=== PATIENT | female | born 1955 | race Caucasian/White ===

== ENCOUNTER → 2017-02-25 | Outpatient (CLI) | payer BC | LOC: BHSO 08:59 | DX: F33.42 Major depressive disorder, recurrent, in full remission (principal) ==

== ENCOUNTER → 2017-08-26 | Outpatient (CLI) | payer BC | LOC: BHSO 08:58 | DX: F33.42 Major depressive disorder, recurrent, in full remission (principal) ==

== ENCOUNTER → 2018-02-25 | Outpatient (CLI) | payer BC, OTHER | LOC: BHSO 08:06 | DX: F33.42 Major depressive disorder, recurrent, in full remission (principal) | CPT/HCPCS: G0463 ==

== ENCOUNTER → 2018-09-01 | Outpatient (CLI) | payer BC | LOC: MC.RAD 07-24 10:20 | DX: Z12.31 Encounter for screening mammogram for malignant neoplasm of breast (principal) ==

== ENCOUNTER → 2018-09-01 | Outpatient (CLI) | payer BC, OTHER | LOC: BHSO 08:40 | DX: F33.42 Major depressive disorder, recurrent, in full remission (principal) | CPT/HCPCS: G0463 ==

== ENCOUNTER → 2019-02-23 | Outpatient (CLI) | payer BC | LOC: BHSO 08:43 | DX: F33.42 Major depressive disorder, recurrent, in full remission (principal) | CPT/HCPCS: G0463 ==

== ENCOUNTER → 2019-03-23 | Outpatient (CLI) | payer BC | LOC: BHSO 10:40 | DX: F33.41 Major depressive disorder, recurrent, in partial remission (principal) | CPT/HCPCS: G0463 ==

== ENCOUNTER → 2019-05-25 | Outpatient (CLI) | payer BC | LOC: BHSO 09:04 | DX: F33.42 Major depressive disorder, recurrent, in full remission (principal) | CPT/HCPCS: G0463 ==

== ENCOUNTER → 2019-11-12 | Outpatient (CLI) | payer BC | LOC: MC.RAD 11:15 | DX: Z12.31 Encounter for screening mammogram for malignant neoplasm of breast (principal) ==

== ENCOUNTER → 2020-05-24 | Outpatient (CLI) | payer BC | LOC: BHSO 10:03 | DX: F33.42 Major depressive disorder, recurrent, in full remission (principal) | CPT/HCPCS: G0463 ==

== ENCOUNTER → 2020-12-25 | Outpatient (CLI) | payer MEDICARE, OTHER ==
[~2020-12-25] MED LIST: ASPI325T6 PO; ATARAX 25MG25 MG/TAB PO; BETAMETHASONE D0.053 TP; DESYREL DIVIDO150 M1 PO; FOLIC ACID 40400 MCG PO; IRON TABLETS325 MG PO; LIPITOR20 MG PO; MAG-OX 400400 MG/TAB PO; NORCO 325 MG-51 TAB PO; PRISTIQ 50 MG T50 MG PO; ROXICODONE 55 MG/TAB PO; SENOKOT S 50 MG1 TAB PO; SEROQUEL 200MG200 MG PO; ULTRAM 50MG TAB50 MG PO; VITAMIN C500 MG PO; WELLBUTRIN XL150 MG PO
== END ==
LOC: MC.RAD 09:28
DX: Z12.31 Encounter for screening mammogram for malignant neoplasm of breast (principal)

== ENCOUNTER 2021-01-23 05:15 | Day surgery (SDC) | payer MEDICARE, OTHER ==
[~2021-01-23] VITALS: Ht 171.6 cm; Wt 86.9 kg
[2021-01-23] VITALS (12 sets, daily range): BP systolic 100–158; BP diastolic 65–87; PULSE 75–93; TEMP 97.5–98.6
[2021-01-23] MEDS ORDERED: DESYREL DIVIDO150 M1 PO (06:02)
[2021-01-23] MEDS ORDERED: PRISTIQ 50 MG T50 MG PO (06:03)
[2021-01-23] MEDS ORDERED: SEROQUEL 200MG200 MG PO (06:03)
[2021-01-23] MEDS ORDERED: ATARAX 25MG25 MG/TAB PO (06:04)
[2021-01-23] MEDS ORDERED: LIPITOR20 MG PO (06:04)
[2021-01-23] MEDS ORDERED: MAG-OX 400400 MG/TAB PO (06:05)
[2021-01-23] MEDS ORDERED: WELLBUTRIN XL150 MG PO (06:06)
[2021-01-23] MEDS ORDERED: BETAMETHASONE D0.053 TP (06:10)
[2021-01-23] MEDS ORDERED: IRON TABLETS325 MG PO (06:38)
[2021-01-23] MEDS ORDERED: VITAMIN C500 MG PO (06:39)
[2021-01-23] MEDS ORDERED: FOLIC ACID 40400 MCG PO (06:39)
--- NOTE | 2021-01-23 11:15 | NUR ---
PATIENT SHIFT ASSESSMENT COMPLETE. POST-OP VSS. PATIENT TOLERATING CLEAR LIQUIDS. DIET ADVANCED PER PROTOCOL. LEFT KNEE DRESSING IS CD&I. POSITIVE PEDAL PULSES EQUAL BILATERALLY. LLE ELEVATED ON PILLOWS. ICE PACK IN PLACE TO KNEE. DARIN HOSE AND SCD'S IN PLACE. CALL LIGHT WITHIN REACH. PRESENT AT THE BEDSIDE. PATIENT DENIES ADDITIONAL NEEDS AT THIS TIME.
--- NOTE | 2021-01-23 13:00 | NUR ---
RT CALLED AND NOTIFIED THAT THE PATIENT IS NEEDING INCENTIVE SPIROMETRY.
--- NOTE | 2021-01-23 14:25 | NUR ---
PATIENT POST-OP VITAL SIGNS STABLE AND COMPLETE. PATIENT TOLERATING A GENERAL DIET. PATIENT DOING ANKLES PUMPS AND INCENTIVE SPIROMETRY. PATIENT REPORTING MILD DISCOMFORT IN THE LEFT KNEE. NO ADDITIONAL NEEDS AT THIS TIME.
--- NOTE | 2021-01-23 16:15 | NUR ---
PATIENT REPORTING THAT THE PAIN IN HER KNEE IS STARTING TO GET WORSE. SHE STATES ITS A 5-6/10 ON A 0-10 SCALE. PATIENT GIVEN PRN TRAMADOL. WILL CONTINUE TO MONITOR.
--- NOTE | 2021-01-23 19:00 | NUR ---
REPORT GIVEN TO BRENDAN PIMENTEL.
--- NOTE | 2021-01-23 20:00 | NUR ---
PT ASSISTED TO BATHROOM WITH ONE ASSIST/GAIT BELT/WALKER. PT DOES WELL. HAS DRSG/YESSENIA TO LEFT LEG. RATES PAIN 3/10. BACK TO BED WITH SUPERVISION. SL TO LEFT HAND WITHOUT REDNESS OR SWELLING.
--- NOTE | 2021-01-24 04:00 | NUR ---
PT AWAKE. RATES PAIN 2/10 TO LEFT KNEE. TAKES SCHEDULED TYLENOL. REPORTS RESTING WELL.
[2021-01-24 04:38] VITALS: BP 128/55; PULSE 101; TEMP 99
[2021-01-24 07:14] LABS: HEMOGLOBIN 10.9 g/dl (12.5-16.0)
[2021-01-24 07:19] LABS: HEMATOCRIT 31.9 % (37.0-47.0)
[2021-01-24 07:48] VITALS: BP 137/71; PULSE 99; TEMP 98.2
--- NOTE | 2021-01-24 09:41 | NUR ---
PT OUT TO [facility] FOR THEARAPY RETURNED TO ROOM AD WORKED WITH OT. PT TOLERATED WELL.PT IS A/O X3. PLAN ON DISCHARGE LATER TODAY.
--- NOTE | 2021-01-24 10:11 | NUR ---
SW met with the patient to discuss discharge plan. The patient lives 3 miles outside of [place] with her , Kwesi (ph#[phone]). She reports independence with ADLs and has a walker. The patient's PCP is Dr. Pratima Hernandez and she receives her medications from [facility]. She reports no difficulties obtaining her meds. The patient does not have a DPOA-HC in EMR, but she states that she does have one completed and that it designates her . The patient plans to return home with her and receive outpatient PT at [facility] upon discharge. No additional needs at this time. *Discharge plan: home with and outpatient PT*
--- NOTE | 2021-01-24 10:38 | NUR ---
Initial visit; Patient thanked Contact Center Associate for looking in on her and offering God's blessings and keeing her in Contact Center Associate's prayers.
--- NOTE | 2021-01-24 11:21 | NUR ---
dressing change complete. pinpoint oozing at distal end of incision. Aquacel placed over incision. int discontinued.
[2021-01-24 12:39] VITALS: BP 153/71; PULSE 92; TEMP 98.4
[2021-01-24] MEDS ORDERED: ASPI325T6 PO (13:58)
[2021-01-24] MEDS ORDERED: ULTRAM 50MG TAB50 MG PO (14:00)
[2021-01-24] MEDS ORDERED: SENOKOT S 50 MG1 TAB PO (14:00)
[2021-01-24] MEDS ORDERED: NORCO 325 MG-51 TAB PO (14:03)
--- NOTE | 2021-01-24 15:46 | NUR ---
DISCHARGE INSTRUCTIONS REVIEWED WITH PT AND . QUESTIONS SOLICITED AND ANSWERED. PT TAKEN TO FRONT BY WHEEL CHAIR.
== END 2021-01-24 14:30 | disposition home or self-care (01) ==
LOC: SURG 05:15 → INPTSU 05:15 → SDCO 05:15 → SURG 05:16 → EDSTATUS 07:30 → SURG 07:30 → INPTSU 10:33 → SURG 10:33 → SDCO 01-24 14:30
PROVIDERS: Orthopaedic Surgery
DX: M17.12 Unilateral primary osteoarthritis, left knee (principal); D64.9 Anemia, unspecified; F32.9 Major depressive disorder, single episode, unspecified; Z20.822 Contact with and (suspected) exposure to COVID-19; Z79.899 Other long term (current) drug therapy; Z88.2 Allergy status to sulfonamides; Z82.3 Family history of stroke; Z83.6 Family history of other diseases of the respiratory system
CPT/HCPCS: OP; A9284; C1713; C1776; J0690; J2250; J2405; J2704; J7120

== ENCOUNTER 2021-04-25 07:27 | Day surgery (SDC) | payer MEDICARE, OTHER ==
[2021-04-25] VITALS (9 sets, daily range): BP systolic 120–144; BP diastolic 51–75; PULSE 67–106; TEMP 97.4–98.4
[~2021-04-25] VITALS: Ht 171.7 cm; Wt 84.9 kg
[~2021-04-25 07:27] MED LIST changes: -ROXICODONE 55 MG/TAB PO
--- NOTE | 2021-04-25 14:17 | NUR ---
Patient to room 332 from the PACU. Patient A&Ox4. VSS. IV CDI, fluids infusing. Denies pain and discomfort. Right leg elevated on pillow. Dressing to right knee CDI, ice applied. Postop VS monitored. Nurse oriented the patient to location, call light and room. Patient advanced to general diet and tolerating without difficulties. No further needs expressed. Call light within reach
--- NOTE | 2021-04-25 17:40 | NUR ---
Patient sitting up in bed eating dinner. VSS. IV CDI. Right leg elevated on pillow, ice applied. Pain medication given as requested. Patient ambulated with nursing staff to the bathroom with gait belt and walker and tolerated well. Call light within reach
--- NOTE | 2021-04-25 20:25 | NUR ---
Pt. sitting up in bed. Pt. is A&Ox3, assessment complete. INT to lt. wrist patent. Pt. reports pain to rt. knee at a 3 on pain scale at this time. Dressing to rt. knee CDI. Pt. denies further needs, call light within reach.
[2021-04-26 00:12] VITALS: BP 111/62; PULSE 92; TEMP 98.2
[2021-04-26 04:20] VITALS: BP 109/55; PULSE 85; TEMP 98.3
[2021-04-26 07:19] LABS: HEMOGLOBIN 11.4 g/dl (12.5-16.0)
[2021-04-26 07:20] LABS: HEMATOCRIT 34.7 % (37.0-47.0)
[2021-04-26 08:00] VITALS: BP 129/69; PULSE 91; TEMP 98.1
--- NOTE | 2021-04-26 08:00 | NUR ---
Patient sitting up, just finished eating breakfast. Nurse assisted patient with standby assist to the bathroom with gait belt and walker. A&Ox4. VSS. IV CDI. Pain 5/10 right knee. Pain medication given as requested. Right knee viktoria wrapped, CDI. Elevated on pillow, ice applied. Patient is ready to go home today. No further needs expressed. Call light within reach
--- NOTE | 2021-04-26 11:01 | NUR ---
dairy husbandry worker met with patient to discuss discharge plan. Patient reports that she lives in [place] at home with her . Patient states she is independent on all activities of daily living. Patient reports that this is her second TKA and she only uses a walker/cane during her recovery time. Patient's PCP is Dr. Hernandez and uses [facility] for perscriptons. Patient states she believes she has a DPOA-HC established. Patients plan is to discharge back home with her and is aware she will have outpatient PT. *Discharge plan: Home with out patient PT*
[2021-04-26 11:38] VITALS: BP 135/78; PULSE 87; TEMP 98.1
--- NOTE | 2021-04-26 13:12 | NUR ---
Initial visit; Patient thanked Medical Photographer for looking in on her, offering God's blessings and keeping her in Medical Photographer's prayers.
[2021-04-26] MEDS ORDERED: ASPI325T6 PO (14:38)
[2021-04-26] MEDS ORDERED: ROXICODONE 55 MG/TAB PO (14:39)
[2021-04-26] MEDS ORDERED: NORCO 325 MG-51 TAB PO (14:39)
[2021-04-26] MEDS ORDERED: SENOKOT S 50 MG1 TAB PO (14:40)
--- NOTE | 2021-04-26 15:42 | NUR ---
Discharge paperwork reviewed with the patient. Patient verbalized an understanding to follow doctors orders. IV removed, tip intact. Gauze and tape covering. Discharge paperwork and personal belongings with the patient. Nurse transfered the patient by wheelchair to patient entrance. No further needs expressed
== END 2021-04-26 15:45 | disposition home or self-care (01) ==
LOC: SDCO 07:27 → SURG 07:27 → INPTSU 07:27 → EDSTATUS 10:30 → SURG 10:30 → SDCO 04-26 15:45
PROVIDERS: Orthopaedic Surgery
DX: M17.11 Unilateral primary osteoarthritis, right knee (principal); E78.5 Hyperlipidemia, unspecified; D69.6 Thrombocytopenia, unspecified; D70.9 Neutropenia, unspecified; F41.9 Anxiety disorder, unspecified; F31.9 Bipolar disorder, unspecified; Z20.822 Contact with and (suspected) exposure to COVID-19; Z79.899 Other long term (current) drug therapy; Z82.3 Family history of stroke
CPT/HCPCS: OP; A9284; C1713; C1776; J0690; J2250; J2270; J2704; J7120

== ENCOUNTER → 2022-02-06 | Outpatient (CLI) | payer MEDICARE, OTHER ==
[~2022-02-06] MED LIST changes: +ROXICODONE 55 MG/TAB PO
== END ==
LOC: MC.RAD 11:10
DX: Z12.31 Encounter for screening mammogram for malignant neoplasm of breast (principal)

== ENCOUNTER 2022-04-29 08:27 | Day surgery (SDC) | payer MEDICARE, OTHER ==
[~2022-04-29] VITALS: Ht 172.7 cm; Wt 88.9 kg
[2022-04-29] MEDS ORDERED: RESTFUL LEGS PO (09:29)
[2022-04-29] MEDS ORDERED: ESTRACE0.1 MG/GM VG (09:30)
[2022-04-29] MEDS ORDERED: VOLTAREN GEL 1%1 TU TP (09:31)
[2022-04-29 09:45] VITALS: BP 137/76; PULSE 82; TEMP 97.6
[2022-04-29 10:11] LABS: EOS # 0.1 K/mm3 (0.0-0.7); EOS % 3.6 % (0.0-4.0); GRAN # 1.8 K/mm3 (1.4-6.5); GRAN % 57.4 % (42.2-75.2); HEMOGLOBIN 12.3 g/dl (12.5-16.0); LYMPH # 0.8 K/mm3 (1.2-3.4); LYMPH % 25.2 % (20.0-51.0); MEAN CELL VOLUME 95 fl (80.0-100.0); MEAN CORPUSCULAR HEMOGLOBIN 32 pg (27-31); MEAN CORPUSCULAR HGB CONC 34 g/dl (33.0-37.0); MONO # 0.4 K/mm3 (0.1-0.6); MONO % 12.5 % (1.7-9.3); PLATELET COUNT 102 K/mm3 (130-400); RED BLOOD COUNT 3.86 M/mm3 (4.10-5.30); REDCELL DISTRIBUTION WIDTH-CV 12.3 % (11.5-14.5)
[2022-04-29 10:13] LABS: HEMATOCRIT 36.5 % (37.0-47.0)
[2022-04-29 11:00] VITALS: BP 123/72; PULSE 82; TEMP 97.6
[2022-04-29 11:15] VITALS: BP 126/76; PULSE 73
[2022-04-29 11:23] VITALS: TEMP 97.6
[2022-04-29 11:30] VITALS: BP 137/71; PULSE 76
--- NOTE | 2022-04-29 12:10 | NUR ---
1057 Report received from BRENDAN Prado. Transfer pt from procedure area to [place] [id number] via cart and BRENDAN Prado assist. Monitors on and alarms set. Call light within reach. Pt's present in room. Pt alert and oriented and in no apparent distress. Pt requests juice and muffin. 1110 Pt taking food and drink well. No complications stated. 1145 Discharge instructions given to pt and pt's . All questions answered to their satisfaction. 1210 Pt transferred out of hospital via wheelchair and this RN assist to private vehicle driven by pt's .
== END 2022-04-29 12:10 | disposition home or self-care (01) ==
LOC: SDCO 08:27
PROVIDERS: Pathology Anatomic Pathology & Clinical Pathology
DX: D72.819 Decreased white blood cell count, unspecified (principal); D69.6 Thrombocytopenia, unspecified; F32.A Depression, unspecified; C44.90 Unspecified malignant neoplasm of skin, unspecified; Z79.82 Long term (current) use of aspirin
CPT/HCPCS: J2704; J7120